=== PATIENT | male | born 1970 | race Caucasian/White ===

== ENCOUNTER → 2017-08-13 | Outpatient (CLI) | payer OTHER | LOC: BMCIMAGING 13:26 | PROVIDERS: ATTEND Podiatrist Foot & Ankle Surgery | DX: M77.32 Calcaneal spur, left foot (principal) ==

== ENCOUNTER → 2018-07-30 | Outpatient (CLI) | payer OTHER | LOC: BMCIMAGING 13:32 | PROVIDERS: ATTEND Physician Assistant | DX: M25.562 Pain in left knee (principal) ==